=== PATIENT | female | born 1980 | race Caucasian/White ===

== ENCOUNTER 2017-04-26 21:18 | Emergency (ER) | payer BC ==
[2017-04-26 21:23] VITALS: TEMP 97.9
[2017-04-26] MEDS ORDERED: IBUPROFEN 600 MG TAB PO ONE (21:25)
--- NOTE | 2017-04-26 22:20 | EDPHY ---
H & P Time Seen by Provider: 04/26/17 21:56 HPI/ROS: CHIEF COMPLAINT: left lower leg pain HISTORY OF PRESENT ILLNESS: 36-year-old female presents emergency department complaining of left lower leg pain. Patient was playing kickball today when she jumped and landed while twisting on her left leg. She felt immediate pain. Pt denies numbness or tingling to this foot, no knee pain. She denies previous injury to this foot though states that for the last couple weeks her ankle on this side has felt unstable. Patient has no other complaints. Smoking Status: Never smoked Physical Exam: GEN: Awake, alert, oriented, no acute distress RESP: nl resp effort MSK: Left lower leg with swelling, tenderness to palpation to medial and lateral lower leg, 2+ pedal pulses, sensation intact to light touch, cap refill less than 2 seconds, no proximal fibular tenderness, no knee pain or hip pain. SKIN: Superficial abrasions to left lower leg Constitutional: Initial Vital Signs Temperature (C) 36.6 C 04/26/17 21:20 Heart Rate 65 04/26/17 21:20 Respiratory Rate 16 04/26/17 21:20 Blood Pressure 116/78 04/26/17 21:20 O2 Sat (%) 100 04/26/17 21:20 O2 Delivery Mode Room Air Allergies/Adverse Reactions: No Known Allergies Allergy (Unverified 04/26/17 21:20) Home Medications: Medication Instructions Recorded Hydrocodone/APAP 5/325 [[place] 1 tab PO Q4H PRN #14 tab 04/26/17 5/325] [place] 3 mg-0.03 mg Tablet 04/26/17 MDM/Departure - MDM Imaging Results: Imaging Impressions Tibia/Fibula X-Ray 04/26/17 21:24 Impression: Displaced spiral fractures of the left tibia and fibula. Imaging: I viewed and interpreted images myself Procedures: A 3 way Ortho Glass left lower leg splint was applied. After application of the splint, I returned and re-examined the patient. The splint was adequately immobilizing the joint. The patients circulation and sensation were intact distal to the splint. Medications Given: Discontinued Medications Ibuprofen (Motrin) 600 mg PO EDNOW ONE Stop: 04/26/17 21:26 Last Admin: 04/26/17 21:28 Dose: 600 mg - Depart Disposition: Home, Routine, Self-Care Clinical Impression: Fracture of tibia, distal, closed Qualifiers: Encounter type: initial encounter Fracture morphology: other fracture Laterality: left Qualified Code(s): S82.392A - Other fracture of lower end of left tibia, initial encounter for closed fracture Fracture of distal fibula Qualifiers: Encounter type: initial encounter Fracture type: closed Fracture morphology: unspecified fracture morphology Laterality: left Qualified Code(s): S82.832A - Other fracture of upper and lower end of left fibula, initial encounter for closed fracture Condition: Good Instructions: Leg Fracture (ED), Hydrocodone/Acetaminophen (By mouth) Additional Instructions: Rest, ice, elevate above the level of your heart as much as possible until you are seen by the orthopedist. Keep your splint clean and dry. Use crutches for ambulation. Do not put any weight on your foot. Take 1 [place] every 4-6 hours as needed for pain. Follow up with orthopedist at 1st available appointment. Return to the emergency department for any numbness or tingling in your foot, discoloration of your foot, any new symptoms or concerns. Follow-up with your primary care doctor to have your bone density checked. Prescriptions: Hydrocodone/APAP 5/325 [[place] 5/325] 1 tab PO Q4H PRN #14 tab PRN Reason: Pain, Moderate Referrals: CHELO VAZQUEZ [Other] - As per Instructions Mario Jackson MD [Medical Doctor] - As per Instructions (orthopedist)
[2017-04-26] MEDS ORDERED: HYDROCOD/APAP 5/325 PREPACK#6 BTL TAKEHOME ONE (22:21)
[2017-04-26] MEDS ORDERED: HYDROCODONE/APAP 5/325 TAB PO ONE (22:21)
[2017-04-26 22:44] VITALS: BP 130/72; PULSE 71; RESP 18; O2SAT 99
== END 2017-04-26 23:00 | disposition home or self-care (01) ==
DX: S82.442A Displaced spiral fracture of shaft of left fibula, initial encounter for closed fracture (principal); S82.242A Displaced spiral fracture of shaft of left tibia, initial encounter for closed fracture; W21.00XA Struck by hit or thrown ball, unspecified type, initial encounter; Y99.8 Other external cause status; Y93.39 Activity, other involving climbing, rappelling and jumping off